=== PATIENT | female | born 1940 | race Caucasian/White ===

== ENCOUNTER 2017-11-07 13:33 | Emergency (ER) | payer OTHER, MEDICAID ==
[~2017-11-07] VITALS: Ht 152.4 cm; Wt 62.3 kg
[~2017-11-07 13:33] MED LIST: ALBU18HF INHALATION; ASPI81TA3 PO; AZIT500T3 PO; CARV6.2579 PO; CYCL-319 PO; FLUT16SP17 NASAL; FURO-109 PO; HYDR-902 PO; HYDR-906 PO; LEVO100T87 PO; LEVO500T72 PO; LISI-523 PO; LOSA25TA5 PO; NICO1PAT6 TD; PRED20TA PO; PROP10TA6 PO; ROPI1TAB PO; SODI15OR8 PO; TRAZ150T65 PO; TRAZ50TA18 PO
--- NOTE | 2017-11-07 13:43 | ERD ---
ER Documentation Chief Complaint Chief Complaint HPI This is a 77-year-old female that presents to the emergency department complaining of left sided chest wall pain that occurred after she had a mechanical fall out of bed. She stated she did not hit her head or lose consciousness but landed on a table. Since that time she has been experiencing the pleuritic chest pain. She was concerned as several years ago she had breast implants and thought that she could have damaged the implants. She denied any analgesic medication prior to arrival. EMS indicates the patient lives alone and was able to ambulate with a slow steady gait. Patient denies a headache or neck pain. She denies any chest pressure that radiates to the neck arm back or jaw and again states that the chest pain is a pleuritic chest pain that is exacerbated with touch or movement ROS All systems reviewed and are negative except as per history of present illness. Medications Home Meds Active Scripts Nicotine* (Nicotine* Patch) 21 mg/day Patch, 1 EACH TD DAILY, #20 PATCH Prov:AMOR HERNANDEZ 10/07/16 Azithromycin* (Zithromax*) 500 Mg Tablet, 500 MG PO DAILY, #3 TAB Prov:AMOR HERNANDEZ 10/07/16 Prednisone* (Prednisone*) 20 Mg Tab, 40 MG PO DAILY, #4 TAB Prov:JUNE HERNANDEZSHUA 10/07/16 Albuterol Sulfate* (Ventolin HFA*) 18 Gm Hfa.aer.ad, 2 PUFF INHALATION Q4H, #1 INHALER Prov:JUNE HERNANDEZSHUA 10/07/16 Sodium Polystyrene Sulfonate* (Kayexalate*) 15 Gm/60 Ml Susp, 30 GM PO ONCE, #1 ML Prov:AMOR HERNANDEZ 10/07/16 Hydrocodone/Acetaminophen ([place] 5-325 Tablet) 1 Each Tablet, 1 EACH PO Q6, #14 TAB Prov:AMOR HERNANDEZ 10/07/16 Levofloxacin* (Levaquin*) 500 Mg Tablet, 500 MG PO DAILY for 7 Days, TAB 0 Refills Prov:ALEXA GAN MD 09/11/15 Lisinopril* (Zestril*) 5 Mg Tab, 5 MG PO DAILY for 30 Days, CAP 2 Refills Prov:ALEXA GAN MD 09/11/15 Furosemide* (Lasix*) 40 Mg Tab, 40 MG PO DAILY@06 for 30 Days, CAP 2 Refills Prov:ALEXA GAN MD 09/11/15 Aspirin (Aspirin) 81 Mg Chew, 81 MG PO DAILY for 30 Days, CAP.EC Prov:ALEXA GAN MD 09/11/15 Reported Medications Trazodone Hcl* (Desyrel*) 150 Mg Tablet, 150 MG PO QHS, #30 TAB 10/07/16 Hydrocodone/Acetaminophen ([place] 10-325 Tablet) 1 Each Tablet, 1 TAB PO, TAB 10/07/16 Fluticasone Propionate* (Fluticasone Propionate* Nasal) 50 Mcg/[place] - 16 Gm [place].susp, 1 SPRAY NASAL DAILY, #1 BOTTLE TO EACH NOSTRIL 10/07/16 Levothyroxine Sodium* (Levothyroxine Sodium*) 100 Mcg Tablet, 100 MCG PO BEFORE BREAKFAST, #30 TAB 10/07/16 Carvedilol* (Carvedilol*) 6.25 Mg Tablet, 6.25 MG PO BID, TAB 09/12/15 Cyclobenzaprine Hcl* (Cyclobenzaprine Hcl*) 10 Mg Tablet, 10 MG PO TID Y for PAIN, TAB 09/10/15 Losartan Potassium* (Losartan Potassium*) 25 Mg Tablet, 25 MG PO DAILY, TAB hold for sbp <110 09/10/15 Ropinirole Hcl* (Ropinirole Hcl*) 1 Mg Tablet, 1 MG PO BID, TAB 09/10/15 Trazodone Hcl* (Trazodone Hcl*) 50 Mg Tablet, 50 MG PO HS, TAB 09/09/15 Propranolol Hcl* (Propranolol Hcl*) 10 Mg Tablet, 10 MG PO DAILY, TAB 09/09/15 Cyclobenzaprine Hcl* (Cyclobenzaprine Hcl*) 10 Mg Tablet, 10 MG PO QHS, TAB 09/09/15 Allergies Allergies: Coded Allergies: No Known Allergy (Unverified , 09/12/15) PMhx/Soc History of Surgery: Yes (spinal fusion, hysterectomy, tonsilectomy ) Anesthesia Reaction: No Hx Neurological Disorder: Yes (HX OF SEIZURES) Hx Respiratory Disorders: Yes (COPD) Hx Psychiatric Problems: Yes (anxiety) Hx Miscellaneous Medical Probl: No Hx Alcohol Use: No Hx Substance Use: No Hx Tobacco Use: No (quit 10/06/16) Physical Exam Vitals Vital Signs Date Time Temp Pulse Resp B/P Pulse Ox O2 Delivery O2 Flow Rate FiO2 11/07/17 13:58 98.1 90 18 140/78 96 Physical Exam Constitutional:Well-developed. Well-nourished. HEENT:Normocephalic. Atraumatic.Pupils were equal round reactive to light. Moist mucous membranes.No tonsillar exudates. Neck: No nuchal rigidity. No lymphadenopathy. No posterior cervical spine tenderness or step-offs. Respiratory: Not using accessory muscles of respiration.Lungs were clear to auscultation bilaterally. No rhonchi. No rales. No wheezing. Cardiovascular: Regular rate regular rhythm.No murmurs. No rubs were appreciated.S1, S2 normal. Distal pulses are palpable 2+ bilaterally. Lateral breast implants with no ecchymosis or tenderness of the left breast. Tenderness over the lateral left chest wall with no crepitus no ecchymosis no flail chest GI: Abdomen was soft. Nontender. Non Distended. No pulsatile abdominal masses or bruits. No rebound. No guarding. Bowel sounds were present and normal. Muscle skeletal: Full range of motion of both the upper and lower extremities bilaterally.Normal muscle tone.No assymetrical calf tenderness or swelling. Skin: No petechia, no purpura. No lesions on the palms or the soles of the feet. No maculopapular rash. NEURO: Patient was alert, awake, orientated x3.No facial droop. Gait observed and normal with no ataxia.Speech had regular rate and rhythm. No focal neurological deficits. Result Diagram: 11/07/17 1540 11/07/17 1540 Results 24 hrs Laboratory Tests Test 11/07/17 15:40 White Blood Count 10.510^3/ul Red Blood Count 4.7710^6/ul Hemoglobin 12.7g/dl Hematocrit 39.1% Mean Corpuscular Volume 82.0fl Mean Corpuscular Hemoglobin 26.6pg Mean Corpuscular Hemoglobin Concent 32.5g/dl Red Cell Distribution Width 14.6% Platelet Count 57390^3/UL Mean Platelet Volume 9.8fl Neutrophils % 75.9% Lymphocytes % 14.0% Monocytes % 8.0% Eosinophils % 1.0% Basophils % 0.7% Nucleated Red Blood Cells % 0.0/100WBC Neutrophils # 8.010^3/ul Lymphocytes # 1.510^3/ul Monocytes # 0.810^3/ul Eosinophils # 0.110^3/ul Basophils # 0.110^3/ul Nucleated Red Blood Cells # 0.010^3/ul Sodium Level 143mmol/L Potassium Level 4.6mmol/L Chloride Level 104mmol/L Carbon Dioxide Level 28mmol/L Anion Gap 16 Blood Urea Nitrogen 19mg/dl Creatinine 0.95mg/dl Glucose Level 112mg/dl Calcium Level 9.3mg/dl Total Bilirubin 0.4mg/dl Direct Bilirubin 0.00mg/dl Indirect Bilirubin 0.4mg/dl Aspartate Amino Transf (AST/SGOT) 18IU/L Alanine Aminotransferase (ALT/SGPT) 32IU/L Alkaline Phosphatase 101IU/L Creatine Kinase 25IU/L Creatine Kinase Index 6.3 Creatinine Kinase MB (Mass) 1.58ng/ml Troponin I 0.016ng/ml Total Protein 7.5g/dl Albumin 4.1g/dl Globulin 3.40g/dl Albumin/Globulin Ratio 1.20 Current Medications Medications (Trade) Dose Ordered Sig/Reid Route PRN Reason Start Time Stop Time Status Last Admin Dose Admin Ibuprofen (Motrin) 600 mg ONCE ONCE PO 11/07/17 16:30 11/07/17 16:31 DC 11/07/17 16:08 Procedures/MDM This is a very pleasant 77-year-old female that presents to the emergency department after she had a mechanical fall from bed 48 hours prior to arrival. My clinical evaluation and workup was to distinguish minor causes of chest pain from acute life threatening cardiopulmonary causes such as myocardial infarction , pulmonary embolism, aortic dissection, esophageal rupture, cardiac tamponade, The patient was placed on a quality assurance monitor final. No electrolyte abnormalities. 12 Lead EKG tracing ordered and reviewed by myself showed: Normal sinus rhythm of 89 bpm and no arrhythmia. [place] interval normal. QRS duration normal. No ST segment elevation No ST segment depression. No changes consistent with acute ischemia. Given that the patient had reproducible tenderness over the left lateral chest wall I did feel is necessary to obtain a CT scan of the chest which is reviewed by myself and the radiologist and indicated the following: Nondisplaced left anterior fifth and sixth rib fractures. No evidence of pulmonary contusion or pneumothorax. Partially calcified bilateral breast implants. Mild scattered areas of increased interstitial markings. Emphysematous changes. Moderate subacute to chronic right sided T12 compression deformity. The patient received Motrin and [place] in the emergency department for analgesia control. She is able to attend her activities of daily living. She stated she felt comfortable being discharged home as there is no evidence of pneumothorax or hypoxia. She will be sent home with a prescription of [place] to take for breakthrough pain as well as anti-inflammatories. The patient was discharged home in fair condition. They were instructed to return to the emergency department at any time if there was any worsening of their condition. The patient stated they would follow up with their PCP in the next 24-48 hours to initiate a suitable medication regimen under the care of their PCP as well as to allow their PCP to monitor any drug reactions. The patient was discharged home with prescriptions after they gave informed consent to the new medication. They were also fully informed by myself on the adverse effects and adverse drug interactions in order to provide adequate safeguards to prevent possible adverse reactions to medications. Departure Diagnosis: Primary Impression: Rib fractures Encounter type: initial encounter Rib fracture type: multiple ribs Fracture type: closed Laterality: left Qualified Code: S22.42XA - Closed fracture of multiple ribs of left side, initial encounter Condition: Fair GUSTABO CARNEY Nov 07, 2017 13:43
[2017-11-07 13:58] VITALS: Ht 152.4 cm; Wt 62.3 kg
[2017-11-07 15:54] LABS: BASOPHIL # 0.1 10^3/ul (0.0-0.1); BASOPHILS % 0.7 % (0.0-2.0); EOSINOPHILS # 0.1 10^3/ul (0.0-0.5); HEMATOCRIT 39.1 % (37.0-47.0); HEMOGLOBIN 12.7 g/dl (12.0-16.0); LYMPHOCYTES # 1.5 10^3/ul (0.8-2.9); MEAN CORPUSCULAR HEMOGLOBIN 26.6 pg (29.0-33.0); MEAN CORPUSCULAR HGB CONC 32.5 g/dl (32.0-37.0); MEAN PLATELET VOLUME 9.8 fl (7.4-10.4); MONOCYTE # 0.8 10^3/ul (0.3-0.9); NEUTROPHILS % 75.9 % (39.0-77.0); PLATELET COUNT 281 10^3/UL (140-415); RED BLOOD COUNT 4.77 10^6/ul (4.20-5.40); RED CELL DISTRIBUTION WIDTH 14.6 % (11.5-14.5); WHITE BLOOD COUNT 10.5 10^3/ul (4.8-10.8)
[2017-11-07 16:14] LABS: ALBUMIN 4.1 g/dl (3.3-4.9); ALBUMIN/GLOBULIN RATIO 1.2; BILIRUBIN,INDIRECT 0.4 mg/dl (0-1.1); BILIRUBIN,TOTAL 0.4 mg/dl (0.2-1.3); CALCIUM 9.3 mg/dl (8.4-10.2); CREATININE 0.95 mg/dl (0.44-1.00); POTASSIUM 4.6 mmol/L (3.5-5.1); TOTAL PROTEIN 7.5 g/dl (6.1-8.1)
--- NOTE | 2017-11-07 16:24 | RADRPT ---
PROCEDURE: CT Chest without contrast. CLINICAL INDICATION: Shortness of breath, trauma TECHNIQUE: CT scan of the chest without contrast was performed on a multidetector high-resolution CT scanner. Coronal and sagittal reformatted images were obtained from the axial source images. The total exam CTDI equals 11 mGy and the total exam DLP equals 421 mGy-cm. One or more of the followi ng dose reduction techniques were used: Automated exposure control, Adjustment of the mA and/or kV a ccording to patient size, and/or use of iterative reconstruction technique. DICOM images are availab le. COMPARISON: Chest x-ray 09/27/16. FINDINGS: Partially calcified bilateral breast implants. Mild scattered areas of increased interstitial markings. Emphysematous changes. No evidence of pulmonary contusion or pneumothorax. No mediastinal or hilar lymphadenopathy. No pleural or pericardial effusion. Right hepatic cyst. Nondisplaced left anterior fifth and sixth rib fractures. Moderate subacute to chronic right sided T12 compression deformity. Degenerative changes of the spin e. IMPRESSION: Nondisplaced left anterior fifth and sixth rib fractures. No evidence of pulmonary contusion or pneumothorax. Partially calcified bilateral breast implants. Mild scattered areas of increased interstitial markings. Emphysematous changes. Moderate subacute to chronic right sided T12 compression deformity. RPTAT: AA .Henry Parra MD, Date Time Electronically viewed and signed by .Henry Parra MD, MD on 11/07/2017 16:24 .T/
[2017-11-07 16:26] LABS: CK-MB 1.58 ng/ml (0.0-2.4); TROPONIN-I 0.016 ng/ml (0.00-0.12)
[2017-11-07] MEDS ORDERED: IBUPROFEN 600 MG TAB PO ONE (16:30)
[2017-11-07] MEDS ORDERED: HYDR-906 PO (16:58)
[2017-11-07] MEDS ORDERED: IBUP-1542 PO (16:58)
[2017-11-07] MEDS ORDERED: HYDROCODONE/APAP (5/325) TAB PO ONE (17:00)
== END 2017-11-07 17:25 | disposition home or self-care (01) ==
LOC: FTE 13:33
DX: S22.42XA Multiple fractures of ribs, left side, initial encounter for closed fracture (principal); J44.9 Chronic obstructive pulmonary disease, unspecified; W06.XXXA Fall from bed, initial encounter; Y92.9 Unspecified place or not applicable; Z79.82 Long term (current) use of aspirin
CPT/HCPCS: 71250; 80053; 82550; 82553; 84484; 85025

== ENCOUNTER 2018-05-21 05:29 | Inpatient (IN) | END 2018-05-22 12:47 | disposition home or self-care (01) | DRG 190 ==